=== PATIENT | female | born 1975 | race Hispanic/Latino ===

== ENCOUNTER 2024-03-27 01:10 | Emergency (ER) | payer SELFPAY ==
[2024-03-27] MEDS ORDERED: NA CHLORIDE 0.9% 1,000 ML ONE (01:43)
[2024-03-27] MEDS ORDERED: FAMOTIDINE 20 MG/2 ML VIAL IV ONE (01:43)
[2024-03-27 02:41] LABS: Specific Gravity < 1.005 (1.005-1.030); Urine Bilirubin NEGATIVE (Negative); Urine Blood Negative (Negative); Urine Clarity Clear (Clear); Urine Color Colorless (Yellow); Urine Glucose NEGATIVE (Negative); Urine Ketones NEGATIVE (Negative); Urine Microscopic Reflex YN NO UMIC; Urine Nitrite NEGATIVE (Negative); Urine Protein NEGATIVE (Negative); Urine Urobilinogen Normal (Normal)
[2024-03-27 02:43] LABS: Absolute Eosinophils 0.1 K/uL (0-0.5); Basophils % 0.6 % (0-1.3); Eosinophils % 1.8 % (0-4.4); Hematocrit 29.8 % (36.0-45.0); Hemoglobin 9.3 g/dL (12.0-15.0); MCH 23.5 pg (27.0-35.0); MCHC 31.1 g/dL (32.0-36.0); MCV 75.7 fL (80-100); MPV 8.3 fL (7.6-11.3); Monocytes % 13.7 % (3.3-12.3); Neutrophils % 55.9 % (41.7-73.7); Platelets 353 thou/uL (152-406); RBC Red Blood Cell Count 3.93 M/uL (3.86-4.86); Red Cell Distribution Width 19.1 % (12.1-15.2)
[2024-03-27 02:57] LABS: Albumin 3.4 g/dL (3.4-5.0); Albumin/Globulin Ratio 0.9 (1.1-1.8); Anion Gap 10.3 mEq/L (5.0-15.0); Bilirubin Total 0.2 mg/dL (0.2-1.0); C-Reactive Protein 7.82 mg/L (<3.00); Globulin 3.6 g/dL (2.3-3.5); Potassium 3.3 mEq/L (3.5-5.1); Thyroid Stimulating Hormone 2.28 uIU/mL (0.358-3.740)
--- NOTE | 2024-03-27 05:04 | ER ---
Nurse's Notes [facility] Name: Iris Martinez Age: 48 yrs Sex: Female : 1975 Arrival Date: 03/27/2024 Time: 01:10 Bed 4 Private MD: Diagnosis: Fibroid Uterus, Enlarged Uterus Presentation: 03/27 01:30 Chief complaint: Patient states: I feel like I have a lump in my stomach and I want an jb4 ultrasound of my right lower stomach. Coronavirus screen: At this time, the client does not indicate any symptoms associated with coronavirus-19. Ebola Screen: No symptoms or risks identified at this time. Initial Sepsis Screen: Does the patient meet any 2 criteria? No. Patient's initial sepsis screen is negative. Does the patient have a suspected source of infection? No. Patient's initial sepsis screen is negative. Risk Assessment: Do you want to hurt yourself or someone else? Patient reports no desire to harm self or others. Onset of symptoms was March 27, 2024. Transition of care: patient was not received from another setting of care. 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 - Infectious Disease History:: Denies. - Social history:: Smoking status: Patient denies any tobacco usage or history of. - Family history:: not pertinent. Screenin:37 [facility] ED Fall Risk Assessment (Adult) History of falling in the last 3 months, tm6 including since admission No falls in past 3 months (0 pts) Confusion or Disorientation No (0 pts) Intoxicated or Sedated No (0 pts) Impaired Gait No (0 pts) Mobility Assist Device Used No (0 pt) Altered Elimination No (0 pt) Score/Fall Risk Level 0 - 2 = Low Risk Oriented to surroundings, Maintained a safe environment, Educated pt \T\ family on fall prevention, incl call for assistance when getting out of bed. Abuse screen: Denies threats or abuse. Denies injuries from another. Nutritional screening: No deficits noted. Tuberculosis screening: No symptoms or risk factors identified. Assessment: 01:37 General: Appears in no apparent distress. Behavior is calm, cooperative. Pain: tm6 Complains of pain in right lower quadrant Pain does not radiate. Pain currently is 6 out of 10 on a pain scale. Quality of pain is described as sharp. Neuro: Level of Consciousness is awake, alert, obeys commands, Oriented to person, place, time, situation. Cardiovascular: Patient's skin is warm and dry. Respiratory: Airway is patent Respiratory effort is even, unlabored, Respiratory pattern is regular, symmetrical. GI: Abdomen is flat, non-distended, Bowel sounds present X 4 quads. Abd is soft Abdomen is tender to palpation in right lower quadrant Patient currently denies diarrhea, nausea, vomiting. : No signs and/or symptoms were reported regarding the genitourinary system. EENT: No signs and/or symptoms were reported regarding the EENT system. Derm: No signs and/or symptoms reported regarding the dermatologic system. Musculoskeletal: No signs and/or symptoms reported regarding the musculoskeletal system. 03:12 Reassessment: Patient appears in no apparent distress at this time. Patient and/or tm6 family updated on plan of care and expected duration. Pain level reassessed. Patient is alert, oriented x 3, equal unlabored respirations, skin warm/dry/pink. 03:58 Reassessment: Patient appears in no apparent distress at this time. Patient and/or tm6 family updated on plan of care and expected duration. Pain level reassessed. Patient is alert, oriented x 3, equal unlabored respirations, skin warm/dry/pink. Vital Signs: 01:30 BP 153 / 92; Pulse 76; Resp 16; Temp 98.2; Pulse Ox 100% on R/A; Weight 52.62 kg (M); jb4 Height 5 ft. 2 in. (R); 03:11 BP 117 / 79; Pulse 70; Pulse Ox 100% on R/A; Pain 0/10; tm6 03:58 BP 144 / 61; Pulse 73; Pulse Ox 99% on R/A; Pain 0/10; tm6 01:30 Body Mass Index 21.22 (52.62 kg, 157.48 cm) 4 03:11 Pain Scale: Adult tm6 03:58 Pain Scale: Adult tm6 Gloria Coma Score: 05:04 Eye Response: spontaneous(4). Motor Response: obeys commands(6). Verbal Response: sp4 oriented(5). Total: 15. ED Course: 01:11 Patient arrived in ED. jj6 01:12 Stanley Machuca MD is Attending Physician. sp4 01:36 Triage completed. jb4 01:37 Vel Mercedes, RN is Primary Nurse. tm6 01:37 Arm band placed on right wrist. jb4 01:37 Patient has correct armband on for positive identification. Bed in low position. Call tm6 light in reach. Side rails up X 1. Provided Education on: use of call reyes. Client placed on continuous cardiac and pulse oximetry monitoring. NIBP monitoring applied. Pulse ox on. NIBP on. Door closed. Noise minimized. Lights dimmed. Warm blanket given. 02:01 Inserted saline lock: 20 gauge in right antecubital area, using aseptic technique. tm6 Blood collected. Flushed with 10 mL NS. 02:01 T4 Free Sent. tm6 02:01 TSH Sent. tm6 02:01 CK Sent. tm6 02:01 CRP Sent. tm6 02:02 CBC with Diff Sent. tm6 02:02 CMP Sent. tm6 02:02 Lipase Sent. tm6 02:02 Test, Urine Sent. tm6 02:02 Urinalysis w/ reflexes Sent. tm6 02:33 Alcohol Level Sent. tm6 02:41 Test, Serum Sent. tm6 03:53 CT Abd/Pelvis - IV Contrast Only In Process Unspecified. EDMS 04:09 Warm blanket given. PO fluids given. tm6 05:00 Teresa Lincoln MD is Referral Physician. sp4 05:18 No provider procedures requiring assistance completed. IV discontinued, intact, al5 bleeding controlled, No redness/swelling at site. Pressure dressing applied. Administered Medications: 02:02 Drug: NS 0.9% IV 1000 ml IV at 1 bolus Per protocol; 1000 mL bolus Route: IV; Rate: 1 tm6 bolus; Site: right antecubital; 03:12 Follow up: Response: No adverse reaction; IV Status: Completed infusion; IV Intake: tm6 1000ml 02:02 Drug: Famotidine IVP 20 mg IVP once; dilute with 10 mL 0.9% NaCl; give over 2 minutes tm6 Route: IVP; Site: right antecubital; 02:41 Follow up: Response: No adverse reaction tm6 Medication: 01:37 VIS not applicable for this client. tm6 Intake: 03:12 IV: 1000ml; Total: 1000ml. tm6 Outcome: 05:03 Discharge ordered by . sp4 05:18 Discharged to home ambulatory, al5 05:18 Condition: good 05:18 Discharge instructions given to patient, Instructed on discharge instructions, follow up and referral plans. Demonstrated understanding of instructions, follow-up care, 05:19 Patient left the ED. al5 Signatures: Dispatcher [employer] EDMS Alfredo Rivera RN RN jb4 Roslyn Trujillo6 Stanley Machuca MD MD sp4 Vel Mercedes RN RN tm6 Cassandra Lagos RN RN al5
--- NOTE | 2024-03-27 05:04 | EDPHYS ---
Physician Documentation [facility] Name: Irsi Martinez Age: 48 yrs Sex: Female : 1975 Arrival Date: 03/27/2024 Time: 01:10 Bed 4 Private MD: ED Physician Stanley Machuca HPI: 03/27 01:12 This 48 yrs old Female presents to ER via Unassigned with complaints of sp4 Abdominal Pain, Rash, Doesn't Feel Right. 05:04 48 -year-old female states that she has persistent lower abdominal discomfort for the sp4 past 2-1/2 years.. 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 - Infectious Disease History:: Denies. - Social history:: Smoking status: Patient denies any tobacco usage or history of. - Family history:: not pertinent. ROS: 05:04 Constitutional: Negative for fever, chills, and weight loss, positive lower abdominal sp4 and pelvic discomfort 05:04 All other systems are negative, Exam: 05:04 Constitutional: This is a well developed, well nourished patient who is awake, alert, sp4 and in no acute distress. Head/Face: Normocephalic, atraumatic. Eyes: Pupils equal round and reactive to light, extra-ocular motions intact. Lids and lashes normal. Conjunctiva and sclera are not injected. Cornea within normal limits. Periorbital areas with no swelling, redness, or edema. ENT: Nares patent. No nasal discharge, no septal abnormalities noted. Tympanic membranes are normal and external auditory canals are clear. Oropharynx with no redness, swelling, or masses, exudates, or evidence of obstruction, uvula midline. Mucous membranes moist. Neck: Trachea midline, no thyromegaly or masses palpated, and no cervical lymphadenopathy. Supple, full range of motion without nuchal rigidity, or vertebral point tenderness. Chest/axilla: Normal chest wall appearance and motion. Nontender with no deformity. No lesions are appreciated. Cardiovascular: Regular rate and rhythm with a normal S1 and S2. No gallops, murmurs, or rubs. Normal PMI, no JVD. No pulse deficits. Respiratory: Lungs have equal breath sounds bilaterally, clear to auscultation and percussion. No rales, rhonchi or wheezes noted. No increased work of breathing, no retractions or nasal flaring. Abdomen/GI: Soft, with normal bowel sounds. No distension or tympany. No guarding or rebound. No evidence of tenderness throughout. Back: No spinal tenderness. No costovertebral tenderness. Skin: Warm, dry with normal turgor. Normal color with no rashes, no lesions, and no evidence of cellulitis. MS/ Extremity: Pulses equal, no cyanosis. Neurovascular intact. Full, normal range of motion. Neuro: Awake and alert, GCS 15, oriented to person, place, time, and situation. Cranial nerves II-XII grossly intact. Motor strength 5/5 in all extremities. Sensory grossly intact. Psych: Awake, alert, with orientation to person, place and time. Behavior, mood, and affect are within normal limits 05:04 Chest/axilla: Normal chest wall appearance and motion. Nontender with no deformity. No lesions are appreciated. Female : Normal external genitalia. 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 No lymphadenopathy. No unusual findings Vital Signs: 01:30 BP 153 / 92; Pulse 76; Resp 16; Temp 98.2; Pulse Ox 100% on R/A; Weight 52.62 kg (M); jb4 Height 5 ft. 2 in. (R); 03:11 BP 117 / 79; Pulse 70; Pulse Ox 100% on R/A; Pain 0/10; tm6 03:58 BP 144 / 61; Pulse 73; Pulse Ox 99% on R/A; Pain 0/10; tm6 01:30 Body Mass Index 21.22 (52.62 kg, 157.48 cm) jb4 03:11 Pain Scale: Adult tm6 03:58 Pain Scale: Adult tm6 Gloria Coma Score: 05:04 Eye Response: spontaneous(4). Motor Response: obeys commands(6). Verbal Response: sp4 oriented(5). Total: 15. MDM: 01:13 Patient medically screened. sp4 04:58 ED course: EXAM DESCRIPTION: Abdomen Pelvis W Contrast RadLex: CTABDOMEN PELVIS WITH IV sp4 CONTRAST CLINICAL HISTORY: 48 years Female; ABD PAIN; IV ONLYBed Name: 4 TECHNIQUE: CT of the abdomen and pelvis [with] intravenous contrast. All CT scans at this facility use dose modulation, iterative reconstruction, and/or weight based dosing when appropriate to reduce radiation dose to as low as reasonably achievable. COMPARISON: None. FINDINGS: Lower thorax: Lung bases are clear Abdomen: Stomach:Within normal limits Liver:No focal lesions. No intrahepatic ductal distention. Gallbladder:Nondistended Pancreas:Small focus of calcification in the pancreatic tail. Spleen:Within normal limits Right kidney:No hydronephrosis. No focal lesion. Left kidney:No hydronephrosis. No focal lesion. Adrenal glands:Within normal limits Vascular structures:Within normal limits Nodes:No lymphadenopathy by size criteria Pelvis: Small bowel:No significant distention. Appendix:Within normal limits Colon:No distention or acute pericolonic edema. Large stool burden. Peritoneum: No free intraperitoneal fluid or air. Bones: No acute bone findings. Bladder: Unremarkable. Reproductive organs: No acute findings. Multiple uterine fibroids. Soft tissues: Small fat-containing umbilical hernia. IMPRESSION: 1. No acute abdominopelvic findings. 2. Large stool burden. 3. Multiple uterine fibroids. Electronically signed by: Sandy Queen MD 03/27/2024 04:22 AM. 05:04 Differential diagnosis: impetigo, parasite infection, carcinoma. Data reviewed: vital sp4 signs, nurses notes, lab test result(s), radiologic studies, CT scan. Consideration of Admission/Observation Escalation of care including admission/observation considered. ED course: CT has revealed enlarged uterus with multiple uterine fibroids. No signs of ovarian mass or any other malignancy.. 03/27 01:12 Order name: CBC with Diff; Complete Time: 04:56 sp4 03/27 01:12 Order name: CMP; Complete Time: 04:56 sp4 03/27 01:12 Order name: Lipase; Complete Time: 04:56 sp4 03/27 01:12 Order name: Test, Urine; Complete Time: 04:56 sp4 03/27 01:12 Order name: Urinalysis w/ reflexes; Complete Time: 04:56 sp4 03/27 01:12 Order name: CRP; Complete Time: 04:56 sp4 03/27 01:12 Order name: CK; Complete Time: 04:56 sp4 03/27 01:12 Order name: TSH; Complete Time: 04:56 sp4 03/27 01:12 Order name: T4 Free; Complete Time: 04:56 sp4 03/27 02:20 Order name: Alcohol Level; Complete Time: 04:56 sp4 03/27 02:22 Order name: Test, Serum; Complete Time: 04:56 sp4 03/27 02:20 Order name: CT Abd/Pelvis - IV Contrast Only 4 03/27 01:12 Order name: IV Saline Lock; Complete Time: 02:01 sp4 03/27 01:12 Order name: Labs collected and sent; Complete Time: 02:02 sp4 Administered Medications: 02:02 Drug: NS 0.9% IV 1000 ml IV at 1 bolus Per protocol; 1000 mL bolus Route: IV; Rate: 1 tm6 bolus; Site: right antecubital; 03:12 Follow up: Response: No adverse reaction; IV Status: Completed infusion; IV Intake: tm6 1000ml 02:02 Drug: Famotidine IVP 20 mg IVP once; dilute with 10 mL 0.9% NaCl; give over 2 minutes tm6 Route: IVP; Site: right antecubital; 02:41 Follow up: Response: No adverse reaction tm6 Disposition Summary: 03/27/24 05:03 Discharge Ordered Notes: Please see ETHYLENE [employer] 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 EDMS EDMS 01:12 01:12 COMPREHENSIVE METABOLIC PANEL+C.LAB.BRZ ordered. EDMS EDMS 01:12 01:12 LIPASE+C.LAB.BRZ ordered. EDMS EDMS 01:12 01:12 Test, Urine+UC.LAB.BRZ ordered. EDMS EDMS 01:12 Urinalysis+U.LAB.BRZ ordered. EDMS EDMS
[2024-03-27 05:28] VITALS: TEMP 98.2
[2024-03-27 05:44] VITALS: BP 144/61; O2SAT 99
--- NOTE | 2024-03-27 17:26 | RAD REPORT ---
EXAM DESCRIPTION: Abdomen Pelvis W Contrast RadLex: CT ABDOMEN PELVIS WITH IV CONTRAST CLINICAL HISTORY: 48 years Female; ABD PAIN; IV ONLY Bed Name: 4 TECHNIQUE: CT of the abdomen and pelvis with intravenous contrast. All CT scans at this facility use dose modulation, iterative reconstruction, and/or weight based dosi ng when appropriate to reduce radiation dose to as low as reasonably achievable. COMPARISON: None. FINDINGS: Lower thorax: Lung bases are clear Abdomen: Stomach: Within normal limits Liver: No focal lesions. No intrahepatic ductal distention. Gallbladder: Nondistended Pancreas: Small focus of calcification in the pancreatic tail. Spleen: Within normal limits Right kidney: No hydronephrosis. No focal lesion. Left kidney: No hydronephrosis. No focal lesion. Adrenal glands: Within normal limits Vascular structures: Within normal limits Nodes: No lymphadenopathy by size criteria Pelvis: Small bowel: No significant distention. Appendix: Within normal limits Colon: No distention or acute pericolonic edema. Large stool burden. Peritoneum: No free intraperitoneal fluid or air. Bones: No acute bone findings. Bladder: Unremarkable. Reproductive organs: No acute findings. Multiple uterine fibroids. Soft tissues: Small fat-containing umbilical hernia. IMPRESSION: 1. No acute abdominopelvic findings. 2. Large stool burden. 3. Multiple uterine fibroids. Electronically signed by: Sandy Queen MD 03/27/2024 04:22 AM CDT Z9 Due to temporary technical issues with the PACS/Fluency reporting system, reports are being signed by the in house radiologists without review as a courtesy to insure prompt reporting. The interpreting radiologist is fully responsible for the content of the report.
== END 2024-03-27 05:19 | disposition home or self-care (01) ==
LOC: ER 01:10
DX: D25.9 Leiomyoma of uterus, unspecified (principal); N85.2 Hypertrophy of uterus
CPT/HCPCS: 36415; 74177; 80053; 81003; 81025; 82077; 82550; 83690; 84439; 84443; 84703; 85025; 86140; 96361; 96374; 99284; J7030; Q9967